=== PATIENT | female | born 2000 | race Caucasian/White ===

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

== ENCOUNTER 2023-08-18 14:04 | Emergency (ER) | payer OTHER, SELFPAY ==
[~2023-08-18] VITALS: Ht 157.5 cm; Wt 54.6 kg
[2023-08-18 14:05] VITALS: BP 129/84; TEMP 98.9; O2SAT 97
[2023-08-18] MEDS: LIDOCAINE 1% MDV 20ML VIAL SC ONE (14:50)
[2023-08-18] MEDS: ACETAMINOPHEN 500 MG TAB PO ONE (15:10)
[2023-08-18] MEDS ORDERED: BACT800T5 PO (15:18)
== END 2023-08-18 15:34 | disposition home or self-care (01) ==
LOC: M ED 14:04
DX: N75.1 Abscess of Bartholin's gland (principal); Z79.2 Long term (current) use of antibiotics

== ENCOUNTER 2023-12-16 16:56 | Emergency (ER) | payer SELFPAY ==
[~2023-12-16] VITALS: Ht 157.5 cm; Wt 55.4 kg
[~2023-12-16 16:56] MED LIST changes: +BACT800T5 PO
[2023-12-16] MEDS: LIDOCAINE W/EPINEPHRINE 1% 20ML VIAL SC ONE (21:12)
[2023-12-16] MEDS ORDERED: CLEO300C2 PO (21:45)
[2023-12-16] MEDS: CLINDAMYCIN 150MG CAPSULE PO ONE (21:49)
[2023-12-16 21:51] VITALS: BP 117/75; TEMP 97.4; O2SAT 96
== END 2023-12-16 21:59 | disposition home or self-care (01) ==
LOC: M ED 16:56
DX: N76.4 Abscess of vulva (principal); Z79.2 Long term (current) use of antibiotics

== ENCOUNTER → 2024-12-18 | Outpatient (RCR) ==
[~2024-12-18] MED LIST changes: +CLEO300C2 PO
== END ==
LOC: M EMPSKH 12-03 11:50
PROVIDERS: ATTEND Family Medicine
DX: Z20.828 Contact with and (suspected) exposure to other viral communicable diseases (principal)